=== PATIENT | female | born 1990 | race American Indian/Alaskan Native ===

== ENCOUNTER 2022-03-19 18:46 | Emergency (ER) | payer MEDICAID ==
[2022-03-19 18:58] VITALS: BP 133/72
[2022-03-19 21:36] LABS: Hematocrit 28.6 % (30.3-42.9); Hemoglobin 8.8 gm/dl (10.1-14.3); Mean Corpuscular HGB Conc 31 % (30-34); Mean Corpuscular Volume 77 fl (79-97); Platelet Count 109 K/mm3 (140-440); Red Blood Count 3.69 M/mm3 (3.65-5.03)
[2022-03-19 21:39] LABS: Red Cell Distribution Width 28.5 % (13.2-15.2)
[2022-03-19 21:52] LABS: Alanine Aminotransferase 8 units/L (7-56); Albumin 4.1 g/dL (3.9-5); Blood Urea Nitrogen 7 mg/dL (7-17); Calcium 8.5 mg/dL (8.4-10.2); Hemolysis Index 7
[2022-03-19 21:54] LABS: BUN/Creatinine Ratio 14
[2022-03-19 21:58] LABS: Erythrocyte Sedimentation Rate 37 mm/Hr (0-20)
--- NOTE | 2022-03-19 22:52 | XRay Report ---
CHEST 2 VIEWS INDICATION / CLINICAL INFORMATION: sickle cell. COMPARISON: None available. FINDINGS: SUPPORT DEVICES: None. HEART / MEDIASTINUM: Borderline cardiomegaly. LUNGS / PLEURA: Minimally indistinct right mediastinal border nonspecific in appearance. No imaging f indings on the lateral image. Mild prominence of central pulmonary vessels. No pneumothorax. BONES: No acute osseous findings. ADDITIONAL FINDINGS: No significant additional findings. IMPRESSION: 1. No active cardiopulmonary disease. Signer Name: Warner Spaulding II, MD Signed: 03/19/2022 10:48 PM Workstation Name: [id number]
[2022-03-20] MEDS ORDERED: SODIUM CHLORIDE 0.9% 1000 ML 1,000 ML IV ONE (01:39)
[2022-03-20] MEDS ORDERED: diphenhydrAMINE 50 MG/ML VIAL IV ONE (01:40)
[2022-03-20] MEDS ORDERED: HYDROcodone/ACETAMINOPHEN 5-325 MG TAB PO ONE (01:40)
[2022-03-20] MEDS ORDERED: KETOROLAC 30 MG/1 ML INJ IV ONE (01:44)
--- NOTE | 2022-03-20 01:53 | Emergency Department Report ---
ED General Adult HPI - General Chief complaint: Vaginal Bleeding Stated complaint: VAGINAL BLEED/FIBROIDS Time Seen by Provider: 03/20/22 01:36 Source: patient, EMS Mode of arrival: Ambulatory Limitations: No Limitations - History of Present Illness Initial comments: Is a 31-year-old female with diagnosis of sickle cell anemia. And fibroids. Patient states she just left [facility] for evaluation of same. I was not satisfied with care. States she was advised that she had fibroids and sickle cell crisis. Patient was treated with NSAIDs and oral control for vaginal bleeding controlled. Patient states she usually gets chest syndromes and requires blood transfusions however she left prior to completion of evaluation at [facility] because she was not getting adequate treatment. Patient currently complains of body aches 7/10 abdominal cramping and vaginal bleeding. Patient using 4 pads daily. There is been no fevers no chills no nausea or vomiting. There is been no increase or shortness of breath. Patient rates crisis as 4/10 for usual crisis. - Related Data Previous Rx's Medication Instructions Recorded Last Taken Type Ibuprofen [Motrin 800 MG tab] 800 mg PO Q8HR PRN #30 tablet 03/20/22 Unknown Rx Allergies Allergy/AdvReac Type Severity Reaction Status Date / Time No Known Allergies Allergy Verified 03/19/22 20:53 ED Review of Systems ROS: Stated complaint: VAGINAL BLEED/FIBROIDS Other details as noted in HPI Constitutional: denies: chills, fever Eyes: denies: eye pain, eye discharge, vision change ENT: congestion. denies: ear pain, throat pain, epistaxis Respiratory: cough. denies: shortness of breath, wheezing Cardiovascular: denies: chest pain, palpitations, dyspnea on exertion Endocrine: no symptoms reported Gastrointestinal: abdominal pain (Cramping bilateral lower abd), nausea. denies: vomiting, diarrhea Genitourinary: abnormal menses. denies: urgency, dysuria, frequency, hematuria, discharge Musculoskeletal: back pain. denies: joint swelling, arthralgia Skin: denies: rash, lesions Neurological: denies: headache, weakness, numbness, paresthesias, confusion, vertigo Psychiatric: denies: anxiety, depression Hematological/Lymphatic: denies: easy bleeding, easy bruising ED Past Medical Hx - Medications Home Medications: Home Medications Medication Instructions Recorded Confirmed Last Taken Type Ibuprofen [Motrin 800 MG tab] 800 mg PO Q8HR PRN #30 tablet 03/20/22 Unknown Rx ED Physical Exam - General Limitations: No Limitations General appearance: alert, in no apparent distress - Head Head exam: Present: normocephalic - Eye Eye exam: Present: EOMI Pupils: Present: normal accommodation - ENT ENT exam: Present: normal orophraynx, mucous membranes moist - Neck Neck exam: Present: normal inspection, full ROM. Absent: tenderness, lymphadenopathy - Respiratory Respiratory exam: Present: normal lung sounds bilaterally. Absent: respiratory distress, wheezes, stridor, chest wall tenderness - Cardiovascular Cardiovascular Exam: Present: regular rate, normal rhythm, normal heart sounds. Absent: systolic murmur, diastolic murmur, rubs, gallop - GI/Abdominal GI/Abdominal exam: Present: soft, normal bowel sounds. Absent: distended, tenderness, guarding, rebound, rigid, bruit, hernia - Rectal Rectal exam: Present: deferred - Extremities Exam Extremities exam: Present: full ROM, normal capillary refill, calf tenderness - Back Exam Back exam: Present: normal inspection, full ROM. Absent: CVA tenderness (R), CVA tenderness (L) - Neurological Exam Neurological exam: Present: alert, oriented X3, normal gait, reflexes normal. Absent: CN II-XII intact, motor sensory deficit - Expanded Neurological Exam Expanded Patient oriented to: Present: person, place, time Speech: Present: fluid speech Cranial nerves: EOM's Intact: Normal Motor strength exam: RUE: 5, LUE: 5, RLE: 5, LLE: 5 DTR: knee (R): 1+, knee (L): 1+ Best Eye Response ([place]): (4) open spontaneously Best Motor Response ([place]): (6) obeys commands Best Verbal Response ([place]): (5) oriented [place] Total: 15 - Psychiatric Psychiatric exam: Present: normal affect, normal mood - Skin Skin exam: Present: warm, dry, intact, normal color. Absent: rash ED Course Vital Signs 03/19/22 03/20/22 03/20/22 18:54 02:35 02:36 Temperature 98.6 F Pulse Rate 72 Respiratory 16 18 18 Rate Blood Pressure 133/72 [Right] O2 Sat by Pulse 100 Oximetry ED Medical Decision Making - Lab Data Result diagrams: 03/19/22 21:07 03/19/22 21:07 Labs 03/19/22 03/19/22 03/19/22 21:07 21:07 21:07 WBC 7.0 RBC 3.69 Hgb 8.8 L Hct 28.6 L MCV 77 L MCH 24 L MCHC 31 RDW 28.5 H Plt Count 109 L ESR 37 Sodium 139 Potassium 3.5 L Chloride 105.4 Carbon Dioxide 20 L Anion Gap 17 BUN 7 Creatinine 0.5 L Estimated GFR > 60 BUN/Creatinine Ratio 14 Glucose 79 Calcium 8.5 Total Bilirubin 2.00 H AST 25 ALT 8 Alkaline Phosphatase 60 Total Protein 7.7 Albumin 4.1 Albumin/Globulin Ratio 1.1 HCG, Qual Negative - Radiology Data Radiology results: report reviewed, image reviewed CHEST 2 VIEWS INDICATION / CLINICAL INFORMATION: sickle cell. COMPARISON: None available. FINDINGS: SUPPORT DEVICES: None. HEART / MEDIASTINUM: Borderline cardiomegaly. LUNGS / PLEURA: Minimally indistinct right mediastinal border nonspecific in appearance. No imaging findings on the lateral image. Mild prominence of central pulmonary vessels. No pneumothorax. BONES: No acute osseous findings. ADDITIONAL FINDINGS: No significant additional findings. IMPRESSION: 1. No active cardiopulmonary disease. Signer Name: Jimmie Spaulding II, MD Signed: 03/19/2022 10:48 PM Workstation Name: [id number] Transcribed By: NICKO Dictated By: JIMMIE SPAULDING II, MD Electronically Authenticated By: JIMMIE SPAULDING II, MD Signed Date/Time: 03/19/222247 DD/ 45 TD/TT: - Medical Decision Making Bilateral lower extremity Doppler demonstrates unterine Fibroids, no DVT no PE. On CTA study. Chest x-ray normal no infiltrates no opacities, vital signs normal labs normal. Patient will be DC'd to self at this time. Patient will continue to hydrate and follow-up primary care doctor in 2 to 3 days. Patient will follow up with primary care in 2 to 3 days. Patient will return to emergency department should symptoms worsen. Patient verbalized agreement understanding with discharge plan. Patient DC'd home in stable condition at this time Critical care attestation.: If time is entered above; I have spent that time in minutes in the direct care of this critically ill patient, excluding procedure time. ED Disposition Clinical Impression: Dysmenorrhea, Vaginal bleeding Disposition: HOME / SELF CARE / HOMELESS Is pt being admited?: No Does the pt Need Aspirin: No Condition: Stable Instructions: Abnormal Uterine Bleeding, Dysmenorrhea, [id number] Additional Instructions: Take medications as prescribed, follow-up with your primary care doctor in 2 to 3 days. Return to the emergency department should symptoms worsen. Prescriptions: Ibuprofen [Motrin 800 MG tab] 800 mg PO Q8HR PRN #30 tablet PRN Reason: pain Referrals: ANAIS BAUMAN MD [Staff Physician] - 3-5 Days Forms: Work/School Release Form(ED) Time of Disposition: 04:25
[2022-03-20 02:44] LABS: Basophils % (Manual) 0 % (0.0-1.8); Eosinophils % (Manual) 0 % (0.0-4.3); Monocytes % (Manual) 0 % (0.0-7.3); Total Cells Counted 100
[2022-03-20 02:45] LABS: Anisocytosis 3+; Hypochromasia 1+
[2022-03-20 02:46] LABS: Ovalocytes 1+; Platelet Estimate Consistent w Auto
--- NOTE | 2022-03-20 03:40 | Ultrasound Report ---
ULTRASOUND PELVIS INDICATION / CLINICAL INFORMATION: fibroids. TECHNIQUE: Transabdominal. Duplex Color Doppler used: Yes. COMPARISON: None available FINDINGS: UTERUS: Uterus measures 9.8 x 4.2 x 6.3 cm. Multiple uterine fibroids are present. Within the fundus one fibroid measures 2.3 x 2.1 x 2.1 cm. Additionally within the posterior lower uterine segment fibr oid measuring 4.1 x 4.5 x 4.6 cm is demonstrated. Endometrial stripe not well visualized. As measured 6.7 mm. RIGHT ADNEXA: 2.1 x 1.8 x 1.7 cm Normal color Doppler blood flow. LEFT ADNEXA: Not identified. URINARY BLADDER: No significant abnormality. FREE FLUID: None. ADDITIONAL FINDINGS: None. IMPRESSION: 1. Nonvisualization of the left ovary. 2. Multiple uterine fibroids. Signer Name: Warner Spaulding II, MD Signed: 03/20/2022 3:35 AM Workstation Name: [id number]
== END 2022-03-20 05:12 | disposition home or self-care (01) ==
LOC: ED 18:46
DX: N94.6 Dysmenorrhea, unspecified (principal); N93.9 Abnormal uterine and vaginal bleeding, unspecified; D57.1 Sickle-cell disease without crisis; D21.9 Benign neoplasm of connective and other soft tissue, unspecified
CPT/HCPCS: 36415; 71046; 76856; 80053; 84703; 85007; 85025; 85652; 96361; 96374; 96375; 99285; J1200; J1885; J7030